=== PATIENT | female | born 1980 | race Caucasian/White ===

== ENCOUNTER 2016-12-24 14:52 | Emergency (ER) | payer OTHER, BC ==
[~2016-12-24] VITALS: Ht 162.6 cm; Wt 47.6 kg
[2016-12-24 14:52] VITALS: BP 120/70
== END 2016-12-24 16:37 | disposition home or self-care (01) ==
LOC: ER 14:53
DX: S16.1XXA Strain of muscle, fascia and tendon at neck level, initial encounter (principal); S39.012A Strain of muscle, fascia and tendon of lower back, initial encounter; V43.52XA Car driver injured in collision with other type car in traffic accident, initial encounter; Y93.89 Activity, other specified; Y92.89 Other specified places as the place of occurrence of the external cause; Y99.9 Unspecified external cause status
CPT/HCPCS: 99283; Z7610